=== PATIENT | female | born 1985 | race Two or more races ===

== ENCOUNTER 2021-01-06 12:35 | Emergency (ER) | payer OTHER ==
[~2021-01-06] VITALS: Ht 154.9 cm; Wt 76.4 kg
[2021-01-06] MEDS ORDERED: MORPHINE SULFATE 4 MG/ML SYRINGE IM ONE (13:45)
[2021-01-06] MEDS ORDERED: ONDANSETRON HCL 4 MG/2 ML VIAL IM ONE (13:45)
[2021-01-06] MEDS ORDERED: TraMADol HCL 50 MG TABLET PO ONE (16:15)
[2021-01-06 16:46] VITALS: BP 123/84
== END 2021-01-06 17:59 | disposition home or self-care (01) ==
LOC: EMS 12:41
DX: S42.011A Anterior displaced fracture of sternal end of right clavicle, initial encounter for closed fracture (principal); V86.99XA Unspecified occupant of other special all-terrain or other off-road motor vehicle injured in nontraffic accident, initial encounter; Y93.89 Activity, other specified; Y92.89 Other specified places as the place of occurrence of the external cause; Y99.8 Other external cause status
CPT/HCPCS: 29105; 70450; 71250; 72125; 96372; 99285; J2270; J2405